=== PATIENT | female | born 1975 | race Caucasian/White ===

== ENCOUNTER → 2017-01-13 | Outpatient (CLI) | payer OTHER | END | disposition home or self-care (01) | LOC: CFH 13:39 | PROVIDERS: ATTEND Family Medicine | DX: Z02.9 Encounter for administrative examinations, unspecified (principal) ==

== ENCOUNTER → 2017-01-14 | Outpatient (CLI) | payer OTHER | END | disposition home or self-care (01) | LOC: CFH 07:29 | PROVIDERS: ATTEND Family Medicine | DX: N60.02 Solitary cyst of left breast (principal); Z98.82 Breast implant status; Z80.3 Family history of malignant neoplasm of breast | CPT/HCPCS: 76642; G0204 ==

== ENCOUNTER → 2017-01-15 | Outpatient (CLI) | payer OTHER | END | disposition home or self-care (01) | LOC: CFH 08:32 | PROVIDERS: ATTEND Family Medicine | DX: N60.01 Solitary cyst of right breast (principal) | CPT/HCPCS: 76942 ==

== ENCOUNTER 2017-08-19 11:24 | Emergency (ER) | payer OTHER ==
[~2017-08-19] VITALS: Ht 154.9 cm; Wt 75.5 kg
[2017-08-19 12:36] LABS: BASOPHILS # (AUTO) 0.03 x10^3/uL (0-0.1); BASOPHILS % (AUTO) 1 % (0-1); EOSINOPHILS # (AUTO) 0.03 x10^3/uL (0-0.4); EOSINOPHILS % (AUTO) 1 % (1-7); LYMPHOCYTES # (AUTO) 1.56 x10^3/uL (1-3.4); LYMPHOCYTES % (AUTO) 26 % (22-44); MD NO; MEAN CORPUSCULAR HEMOGLOBIN 30.2 pg (27.0-34.8); MEAN CORPUSCULAR HGB CONC 34.1 g/dL (32.4-35.8); MEAN CORPUSCULAR VOLUME 88.4 fL (80-100); MEAN PLATELET VOLUME 10.2 fL (7.4-10.4); MONOCYTES # (AUTO) 0.48 x10^3/uL (0.2-0.8); MONOCYTES % (AUTO) 8 % (2-9); NEUTROPHILS % (AUTO) 66 % (42-75); PLATELET COUNT 250 x10^3/uL (130-400); RED BLOOD COUNT 4.71 x10^6/uL (3.82-5.3); RED CELL DISTRIBUTION WIDTH 12.6 % (9.6-15.2)
[2017-08-19 12:41] LABS: ALBUMIN 3.6 g/dL (3.4-5.0); ANION GAP 7 mmol/L (5-15); CALCIUM 8.7 mg/dL (8.5-10.1); CHLORIDE 106 mmol/L (98-107)
[2017-08-19 12:46] LABS: ALANINE AMINOTRANSFERASE 21 U/L (12-78); ALKALINE PHOSPHATASE 42 U/L (45-117); BILIRUBIN,TOTAL 0.5 mg/dL (0.2-1.0); CREATININE 0.83 mg/dL (0.55-1.02); T4 (THYROXINE) 10.1 mcg/dL (4.8-13.9); TOTAL PROTEIN 7.1 g/dL (6.4-8.2); TROPONIN I < 0.015 ng/mL (0.000-0.045)
[2017-08-19 13:46] VITALS: BP 131/83
== END 2017-08-19 13:48 | disposition home or self-care (01) ==
LOC: ED 13:29
DX: R00.2 Palpitations (principal); I49.3 Ventricular premature depolarization; I47.1 Supraventricular tachycardia
CPT/HCPCS: 36415; 71046; 80053; 83880; 84436; 84443; 84484; 85025; 93005; 99285

== ENCOUNTER → 2018-03-22 | Outpatient (CLI) | payer OTHER | END | disposition home or self-care (01) | LOC: CFH 14:54 | PROVIDERS: ATTEND Nurse Practitioner Family | DX: N63.21 Unspecified lump in the left breast, upper outer quadrant (principal) | CPT/HCPCS: 77066 ==

== ENCOUNTER → 2018-04-04 | Outpatient (CLI) | payer OTHER ==
[~2018-04-04] MED LIST: LIDOCAINE 1%, 20ML ONE; LIDOCAINE 1%-EPI 1:100K, 20ML ONE; SODIUM BICARBONATE 4.0%, 5ML ONE
== END | disposition home or self-care (01) ==
LOC: CFH 08:40
PROVIDERS: ATTEND Nurse Practitioner Family
DX: N60.02 Solitary cyst of left breast (principal)
CPT/HCPCS: 19000; 76942; J3490

== ENCOUNTER → 2018-07-19 | Outpatient (CLI) | payer OTHER | END | disposition home or self-care (01) | LOC: CFH 08:13 | PROVIDERS: ATTEND Obstetrics & Gynecology Female Pelvic Medicine and Reconstructive Surgery | DX: N83.201 Unspecified ovarian cyst, right side (principal); N92.0 Excessive and frequent menstruation with regular cycle | CPT/HCPCS: 76830 ==

== ENCOUNTER → 2018-11-16 | Outpatient (CLI) | payer OTHER ==
[~2018-11-16] MED LIST changes: +ASCO500C2 PO; -LIDOCAINE 1%, 20ML ONE; -LIDOCAINE 1%-EPI 1:100K, 20ML ONE; +MAGN400C PO; -SODIUM BICARBONATE 4.0%, 5ML ONE; +TURM500C4 PO; +VITA1CAP PO; +VITA1TAB85 PO
[2018-11-16 11:05] LABS: BASOPHILS # (AUTO) 0.02 x10^3/uL (0-0.1); BASOPHILS % (AUTO) 0 % (0-1); EOSINOPHILS # (AUTO) 0.11 x10^3/uL (0-0.4); EOSINOPHILS % (AUTO) 2 % (1-7); LYMPHOCYTES # (AUTO) 1.48 x10^3/uL (1-3.4); LYMPHOCYTES % (AUTO) 26 % (22-44); MD NO; MEAN CORPUSCULAR HEMOGLOBIN 30.7 pg (27.0-34.8); MEAN CORPUSCULAR HGB CONC 33.5 g/dL (32.4-35.8); MEAN CORPUSCULAR VOLUME 91.7 fL (80-100); MEAN PLATELET VOLUME 9.7 fL (7.4-10.4); MONOCYTES # (AUTO) 0.34 x10^3/uL (0.2-0.8); MONOCYTES % (AUTO) 6 % (2-9); NEUTROPHILS # (AUTO) 3.73 x10^3/uL (1.8-6.8); NEUTROPHILS % (AUTO) 66 % (42-75); PLATELET COUNT 239 x10^3/uL (130-400); RED BLOOD COUNT 4.67 x10^6/uL (3.82-5.3); RED CELL DISTRIBUTION WIDTH 12.4 % (9.6-15.2)
== END | disposition home or self-care (01) ==
LOC: STAR 10:09
PROVIDERS: ATTEND Obstetrics & Gynecology Female Pelvic Medicine and Reconstructive Surgery
DX: Z01.818 Encounter for other preprocedural examination (principal); N92.0 Excessive and frequent menstruation with regular cycle; N80.0 Endometriosis of uterus; N94.6 Dysmenorrhea, unspecified
CPT/HCPCS: 36415; 84702; 85025

== ENCOUNTER 2018-11-21 05:49 | Day surgery (SDC) | payer OTHER ==
[~2018-11-21] VITALS: Ht 154.9 cm; Wt 78.0 kg
[2018-11-21] MEDS ORDERED: LACTATED RINGERS 1,000 ML IV SCH ×2 (06:39→09:13)
[2018-11-21 06:40] VITALS: BP 141/88
[2018-11-21] MEDS ORDERED: INDIGO CARMINE 0.8%, 5ML ONE (06:44)
[2018-11-21] MEDS ORDERED: EPINEPHRINE 1 MG/ML, 1ML ONE (06:44)
[2018-11-21] MEDS ORDERED: BUPIVACAINE/PF 0.25% ONE ×2 (06:44→06:45)
[2018-11-21 06:45] LABS: HCG UR SG 1.023 (1.003-1.030)
[2018-11-21] MEDS ORDERED: MIDAZOLAM 1 MG/ML, 2ML ONE (06:52)
[2018-11-21] MEDS ORDERED: FENTANYL PF 250 MCG/5ML ONE ×2 (06:52→07:48)
[2018-11-21] MEDS ORDERED: PHENYLEPHRINE 10 MG/ML ONE (06:57)
[2018-11-21] MEDS ORDERED: KETOROLAC 30 MG/1 ML ONE (06:57)
[2018-11-21] MEDS ORDERED: CEFAZOLIN 1,000 MG ONE (06:59)
[2018-11-21] MEDS ORDERED: NEOSTIGMINE 1 MG/ML, 10ML ONE (06:59)
[2018-11-21] MEDS ORDERED: GLYCOPYRROLATE 0.2MG/1ML, 5ML ONE (06:59)
[2018-11-21] MEDS ORDERED: ROCURONIUM 10MG/ML,5ML ONE (06:59)
[2018-11-21] MEDS ORDERED: ONDANSETRON 2MG/ML, 2ML ONE (06:59)
[2018-11-21] MEDS ORDERED: PROPOFOL 10 MG/ML, 20ML ONE (06:59)
[2018-11-21] MEDS ORDERED: DEXAMETHASONE 4 MG/ML, 1ML ONE (06:59)
[2018-11-21] MEDS ORDERED: ACETAMINOPHEN 500 MG TABLET PO ONE (07:00)
[2018-11-21] MEDS ORDERED: GABAPENTIN 300 MG CAPSULE PO ONE (07:00)
[2018-11-21] MEDS ORDERED: LIDOCAINE-MPF 1%, 2ML INFIL ONE (07:00)
[2018-11-21] MEDS ORDERED: SCOPOLAMINE PATCH, 1.5MG PATCH.TD72 TD ONE (07:00)
[2018-11-21] MEDS ORDERED: ONDANSETRON 2MG/ML, 2ML IV PRN (07:30)
[2018-11-21] MEDS ORDERED: PROMETHAZINE 25 MG/ML, 1ML IM PRN ×2 (07:30)
[2018-11-21] MEDS ORDERED: OXYcodone 5 MG/5 ML ORAL.SOL UDC PO PRN (07:30)
[2018-11-21] MEDS ORDERED: MORPHINE SULFATE 4 MG/ML, 1ML IVPush PRN (07:30)
[2018-11-21] MEDS ORDERED: HYDROmorphone 2 MG/ML, 1ML IVPush PRN (07:30)
[2018-11-21] MEDS ORDERED: MEPERIDINE/PF 25MG/0.5ML IVPush PRN (07:30)
[2018-11-21] MEDS ORDERED: hydrALAzine 20 MG/ML, 1ML IV PRN (07:30)
[2018-11-21] MEDS ORDERED: PROMETHAZINE 25 MG SUPP PR PRN (07:30)
[2018-11-21] MEDS ORDERED: PROMETHAZINE 25 MG/ML, 1ML IV PRN (07:30)
[2018-11-21] MEDS ORDERED: ONDANSETRON ODT 8 MG PO PRN (07:30)
[2018-11-21] MEDS ORDERED: LABETALOL 5MG/ML, 20ML IV PRN (07:30)
[2018-11-21] MEDS ORDERED: PROMETHAZINE 12.5 MG SUPP PR PRN (07:30)
[2018-11-21] MEDS ORDERED: HALOPERIDOL 5 MG/ML IV PRN (07:30)
[2018-11-21] MEDS ORDERED: FENTANYL PF 100 MCG/2ML ONE ×2 (08:36→09:37)
[2018-11-21] MEDS ORDERED: PROMETHAZINE 25 MG SUPP PR ONE (09:30)
[2018-11-21] MEDS ORDERED: HYDROcodone/APAP 5/325 TABLET PO PRN (09:30)
[2018-11-21] MEDS ORDERED: IBUPROFEN 600 MG TABLET PO PRN (09:30)
[2018-11-21] MEDS ORDERED: ONDANSETRON 2MG/ML, 2ML IVPush PRN (09:30)
[2018-11-21] MEDS ORDERED: OXYcodone 5 MG/5 ML ORAL.SOL UDC ONE (09:37)
[2018-11-21] MEDS: FENTANYL PF 100 MCG/2ML IV PRN ×3 (09:40→10:00)
== END 2018-11-21 14:00 | disposition home or self-care (01) ==
LOC: OR 05:49
PROVIDERS: ATTEND Obstetrics & Gynecology Female Pelvic Medicine and Reconstructive Surgery
DX: N80.0 Endometriosis of uterus (principal); N80.3 Endometriosis of pelvic peritoneum; D25.1 Intramural leiomyoma of uterus; N83.8 Other noninflammatory disorders of ovary, fallopian tube and broad ligament; N83.292 Other ovarian cyst, left side; G43.909 Migraine, unspecified, not intractable, without status migrainosus; Z72.89 Other problems related to lifestyle; Z79.899 Other long term (current) drug therapy; Z88.8 Allergy status to other drugs, medicaments and biological substances; Z98.890 Other specified postprocedural states; Z80.3 Family history of malignant neoplasm of breast
CPT/HCPCS: 58552; 58662; 81025; 88305; 88307; J0171; J0690; J1100; J1885; J2250; J2370; J2405; J2704; J2710; J3010; J3490; J7120; S2900

== ENCOUNTER 2019-04-17 07:21 | Outpatient (CLI) | END 2019-04-17 23:59 | disposition home or self-care (01) | LOC: CFH 07:21 | PROVIDERS: ATTEND Family Medicine | DX: N60.02 Solitary cyst of left breast (principal); N60.01 Solitary cyst of right breast; Z80.3 Family history of malignant neoplasm of breast | CPT/HCPCS: 76642; 77066; G0279 ==

== ENCOUNTER → 2020-06-06 | Outpatient (CLI) | payer OTHER | END | disposition home or self-care (01) | LOC: CFH 08:20 | PROVIDERS: ATTEND Obstetrics & Gynecology Female Pelvic Medicine and Reconstructive Surgery | DX: N64.59 Other signs and symptoms in breast (principal) | CPT/HCPCS: 77062; 77066; G0279 ==

== ENCOUNTER 2020-09-14 23:20 | Emergency (ER) | payer OTHER ==
[~2020-09-14] VITALS: Ht 157.5 cm; Wt 80.9 kg
[2020-09-14 23:22] VITALS: BP 146/92
[2020-09-14 23:57] LABS: BASOPHILS % (AUTO) 1 % (0-1); EOSINOPHILS % (AUTO) 2 % (1-7); LYMPHOCYTES % (AUTO) 29 % (22-44); MEAN CORPUSCULAR HEMOGLOBIN 29.8 pg (27.0-34.8); MEAN CORPUSCULAR HGB CONC 34.3 g/dL (32.4-35.8); MEAN PLATELET VOLUME 9.4 fL (7.4-10.4); MONOCYTES % (AUTO) 10 % (2-9); NEUTROPHILS % (AUTO) 58 % (42-75); PLATELET COUNT 219 x10^3/uL (130-400); RED BLOOD COUNT 4.63 x10^6/uL (3.82-5.3); RED CELL DISTRIBUTION WIDTH 13.3 % (9.6-15.2)
[2020-09-14 23:59] LABS: MD NO
[2020-09-15 00:09] LABS: ALBUMIN 3.7 g/dL (3.4-5.0); ANION GAP 1 mmol/L (5-15); CALCIUM 8.9 mg/dL (8.5-10.1); CHLORIDE 108 mmol/L (98-107); CREATININE 0.69 mg/dL (0.55-1.02)
[2020-09-15 00:18] LABS: TROPONIN I < 0.015 ng/mL (0.000-0.045)
[2020-09-15 00:41] LABS: FREE T4 (FREE THYROXINE) 1.35 ng/dL (0.76-1.46)
--- NOTE | 2020-09-15 01:32 | NUR ---
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
--- NOTE | 2020-09-15 02:24 | NUR ---
Break RN: re-evaluation done. patient discharged with instruction. verbalized understanding.
== END 2020-09-15 02:27 | disposition home or self-care (01) ==
LOC: ED 09-15 02:15
DX: R00.2 Palpitations (principal)
CPT/HCPCS: 36415; 71045; 80048; 82040; 84439; 84443; 84481; 84484; 85025; 93005; 99285